=== PATIENT | female | born 1960 | race Caucasian/White ===

== ENCOUNTER 2018-05-20 08:45 | Inpatient (IN) | payer BC ==
[~2018-05-20] VITALS: Ht 175.3 cm; Wt 151.8 kg
[2018-05-20] VITALS (23 sets, daily range): BP systolic 116–193; BP diastolic 67–106
[2018-05-20] MEDS ORDERED: sod bicarbonate 150mEq in D5W 1,150 ML IV ONE (09:15)
[2018-05-20] MEDS ORDERED: diphenhydrAMINE 25mg capsule PO PRN (09:15)
[2018-05-20] MEDS ORDERED: normal saline 1000ml 1,000 ML IV SCH (09:30)
[2018-05-20 09:37] LABS: BASOPHILS # (AUTO) 0.1 X10'3 (0-0.2); BASOPHILS % (AUTO) 1.1 % (0-1); EOSINOPHILS # (AUTO) 0.2 X10'3 (0-0.9); EOSINOPHILS % (AUTO) 2.6 % (0-6); HEMATOCRIT 45.2 % (35.0-45.0); HEMOGLOBIN 14.7 g/dl (12.0-16.0); LYMPHOCYTES # (AUTO) 2.1 X10'3 (1.1-4.8); LYMPHOCYTES % (AUTO) 24.7 % (21-51); MEAN CORPUSCULAR HEMOGLOBIN 26.7 PG (27.0-31.0); MEAN CORPUSCULAR HGB CONC 32.6 % (33.0-36.5); MEAN PLATELET VOLUME 7.8 FL (7.4-10.4); MONOCYTES # (AUTO) 0.5 X10'3 (0-0.9); MONOCYTES % (AUTO) 5.3 % (2-12); NEUTROPHILS # (AUTO) 5.8 X10'3 (1.8-7.7); NEUTROPHILS % (AUTO) 66.3 % (42-75); PLATELET COUNT 415 X10'3 (140-440); RED BLOOD COUNT 5.52 X10'6 (4.20-5.60); RED CELL DISTRIBUTION WIDTH 14.8 % (11.5-14.5); WHITE BLOOD COUNT 8.7 X10'3 (4.5-11.0)
[2018-05-20 09:45] LABS: ALBUMIN 3.5 G/DL (3.4-5.0); ANION GAP 11 (8-16); BLOOD UREA NITROGEN 18 MG/DL (7-18); CALCIUM 8.4 MG/DL (8.5-10.1); CHLORIDE 104 MMOL/L (99-107); CREATININE 0.75 MG/DL (0.40-0.90); GLUCOSE 108 MG/DL (70-104); POTASSIUM 3.9 MMOL/L (3.5-5.1); SODIUM 141 MMOL/L (135-145); TOTAL CARBON DIOXIDE 25.7 MMOL/L (24-32); eGFR 80 ML/MIN
[2018-05-20] MEDS ORDERED: ALPR-624 PO (09:47)
[2018-05-20] MEDS ORDERED: LOSA50TA3 PO (09:48)
[2018-05-20] MEDS ORDERED: METO-539 PO (09:49)
[2018-05-20 09:56] LABS: PROTHROMBIN TIME 9.9 SECONDS (9.0-12.0)
[2018-05-20] MEDS ORDERED: LIDOcaine 1% (10mg/ml)w/preservative injection 20ml MDV ONE ×2 (10:18→15:08)
[2018-05-20] MEDS ORDERED: iohexol 350MG/ML 100ml bottle IV ONE ×2 (10:18→16:15)
[2018-05-20] MEDS ORDERED: iohexol 350 MG/ML 50ML vial IV ONE (10:18)
[2018-05-20] MEDS ORDERED: nitroGLYCERIN-Tridil 50MG/D5W 250 ML IV ONE ×2 (10:47→15:35)
[2018-05-20] MEDS ORDERED: midazolam 2 mg/2 ml injection ONE ×5 (10:47→14:44)
[2018-05-20] MEDS ORDERED: fentaNYL/PF 50MCG/1 ML 2ML syringe ONE ×4 (10:47→14:44)
[2018-05-20] MEDS ORDERED: heparin 1,000unit/ml 10ml vial 10 ML ONE ×3 (10:47→14:44)
[2018-05-20] MEDS ORDERED: proCHLORperazine 10 MG/2 ml inj ONE (10:47)
[2018-05-20] MEDS ORDERED: verapamil 2.5 mg/ml inj IV ONE (10:47)
[2018-05-20] MEDS ORDERED: iohexol 350 MG/1 ML 200ml bottle ONE ×2 (11:31→14:44)
[2018-05-20] MEDS ORDERED: nitroGLYCERIN 0.4mg SUBLingual tab SL ONE (11:37)
[2018-05-20] MEDS ORDERED: hydrALAZINE 20mg/ml inj. IV ONE (11:43)
[2018-05-20] MEDS ORDERED: ticagrelor 90mg tablet ONE ×2 (12:26→12:29)
[2018-05-20] MEDS ORDERED: ketorolac tromethamine 15mg/ml inj. IM ONE (13:10)
[2018-05-20] MEDS ORDERED: proCHLORperazine 10 MG/2 ml inj IV PRN (13:35)
[2018-05-20] MEDS ORDERED: ondansetron/PF 4mg/2ml inj IV PRN (13:35)
[2018-05-20] MEDS: HYDROcodone/acetaminophen 10/325mg tab PO PRN ×3 (13:40→23:56)
[2018-05-20] MEDS: OXAZEpam 15mg capsule PO PRN (13:42)
--- NOTE | 2018-05-20 14:30 | NUR ---
Pt arrived from [facility] approx 1300. Had recieved x6 stents. stated severe chest pain of approx 15 on scale of 0-10. Pain meds given. pain persisted. EKG completed approx [address] Starkey arrived in unit to view and talk to pt. pt returned to [facility] at approx 1455
[2018-05-20] MEDS ORDERED: HYDROmorphone 1 mg/ml syringe ONE (15:04)
[2018-05-20] MEDS ORDERED: tirofiban 5mg in NS 100mL 100 ML IV ONE (15:39)
--- NOTE | 2018-05-20 17:00 | NUR ---
Pt arrived from [facility]. Femstop in place. Small hematoma present. Pt denies chest pain. Reports that her bladder is full.
--- NOTE | 2018-05-20 17:15 | NUR ---
16 Fr Temp jacobson placed, 600 mL of clear, clear yellow urine out.
[2018-05-20] MEDS ORDERED: aspirin 81mg tab.chew PO ONE (17:40)
[2018-05-20] MEDS ORDERED: cloNIDine 0.1 mg tablet PO ONE (17:45)
--- NOTE | 2018-05-20 17:49 | NUR ---
Dr Starkey in to see pt. Medication ordered to address hypertension.
[2018-05-20] MEDS: normal saline 1000ml 1,000 ML IV SCH (18:01)
--- NOTE | 2018-05-20 18:31 | NUR ---
Patient in room CICU 2009. I have received report from JESUS ALBERTO ALEXANDER and had the opportunity to ask questions and assume patient care.
--- NOTE | 2018-05-20 19:51 | NUR ---
DR JORGE CALLED ABOUT PATIENT'S EPISODES OF V-TACH. PATIENT HAD 3 BEAT RUN THEN A 6 BEAT RUN OF VTACH AT 1917 PATIENT NOT C/O ANY CP V/S 153/[address] JORGE IS NOT CONCERNED ABOUT THE BP IN THE 150/70'S. ORDERED TO CONTINUE WITH LOPRESSOR SCHEDULED FOR 1999 Addendum: 05/20/18 at 2009 by Chucky Fernández RN DR JORGE CALLED BACK GIVING ORDERS TO GIVE 5MG LOPRESSOR X2 5 MINUTES APART IV AND ALSO ORDERED NURSE TO GIVE MAGNESIUM 2MG ONCE AND RUN OVER 1 HOUR.
[2018-05-20] MEDS ORDERED: metoprolol tartrate 1mg/ml inj IV ONE ×2 (20:00→20:15)
[2018-05-20] MEDS ORDERED: magnesium 2GM in 50ml NS 50 ML IV ONE (20:00)
[2018-05-20] MEDS: magnesium hydroxide 30ml (MOM) UD suspension PO SCH (20:27)
[2018-05-20] MEDS: acetaminophen 325mg tablet PO PRN (20:28)
[2018-05-20] MEDS: docusate sod 100mg capsule PO SCH (20:29)
[2018-05-20] MEDS: metoprolol tartrate 25mg tablet PO SCH (20:31)
--- NOTE | 2018-05-20 23:52 | NUR ---
PATIENT FLAT UNTIL 11PM ; NO SXS OF HEMATOMA OR BLEEDING. PEDAL PULSES STRONG BILATERALLY. WILL CONTINUE TO MONITOR
[2018-05-21] VITALS (25 sets, daily range): BP systolic 131–166; BP diastolic 58–84
--- NOTE | 2018-05-21 03:23 | NUR ---
patient remains on bedrest; drainage noted outside of lines drawn earlier on bandage. pedal pulses remain strong and present bilaterally. site is soft and no sxs of hematoma. will continue to monitor
[2018-05-21] MEDS: acetaminophen 325mg tablet PO PRN ×2 (03:37→17:40)
[2018-05-21] MEDS: HYDROcodone/acetaminophen 5mg/325mg tablet PO PRN ×3 (04:45→20:06)
[2018-05-21 05:37] LABS: BASOPHILS % (AUTO) 0.2 % (0-1); EOSINOPHILS # (AUTO) 0.2 X10'3 (0-0.9); EOSINOPHILS % (AUTO) 1.4 % (0-6); HEMATOCRIT 39.8 % (35.0-45.0); HEMOGLOBIN 12.9 g/dl (12.0-16.0); LYMPHOCYTES # (AUTO) 2.2 X10'3 (1.1-4.8); LYMPHOCYTES % (AUTO) 17.8 % (21-51); MEAN CORPUSCULAR HEMOGLOBIN 26.6 PG (27.0-31.0); MEAN CORPUSCULAR HGB CONC 32.6 % (33.0-36.5); MEAN CORPUSCULAR VOLUME 81.7 FL (78-98); MEAN PLATELET VOLUME 7.9 FL (7.4-10.4); MONOCYTES # (AUTO) 1.1 X10'3 (0-0.9); MONOCYTES % (AUTO) 8.9 % (2-12); NEUTROPHILS # (AUTO) 8.8 X10'3 (1.8-7.7); NEUTROPHILS % (AUTO) 71.7 % (42-75); PLATELET COUNT 388 X10'3 (140-440); RED BLOOD COUNT 4.87 X10'6 (4.20-5.60); RED CELL DISTRIBUTION WIDTH 15.1 % (11.5-14.5); WHITE BLOOD COUNT 12.3 X10'3 (4.5-11.0)
[2018-05-21 05:43] LABS: ALBUMIN 2.7 G/DL (3.4-5.0); ANION GAP 8 (8-16); BLOOD UREA NITROGEN 10 MG/DL (7-18); BUN/CREATININE RATIO 16.1 (6.6-38.0); CHLORIDE 103 MMOL/L (99-107); CHOL/HDL RATIO 3.7 (0.00-4.99); CHOLESTEROL 141 MG/DL (0-200); CREATININE 0.62 MG/DL (0.40-0.90); GLUCOSE 111 MG/DL (70-104); HDL CHOLESTEROL 38 MG/DL (35-60); LDL CHOLESTEROL 96 MG/DL (50-100); MAGNESIUM 2.2 MG/DL (1.5-2.4); POTASSIUM 3.2 MMOL/L (3.5-5.1); SODIUM 140 MMOL/L (135-145); TOTAL CARBON DIOXIDE 28.6 MMOL/L (24-32); TRIGLYCERIDES 74 MG/DL (20-135); eGFR > 90 ML/MIN
--- NOTE | 2018-05-21 06:05 | NUR ---
DEANNA documentation: I have reviewed and agree with all interventions, assessments performed and documented by ESVIN ALEXANDER.
--- NOTE | 2018-05-21 06:05 | NUR ---
[facility] Medication Administration: For this medication-pass time frame, all medication were reviewed, dispensed, administered and documented per hospital policy by ESVIN ALEXANDER.
--- NOTE | 2018-05-21 06:27 | NUR ---
Problems reprioritized. Patient report given, questions answered & plan of care reviewed with JESUS ALBERTO ALEXANDER. Addendum: 05/21/18 at 0628 by Chucky Fernández RN PATIENT ASLEEP IN BED; IN NO DISTRESS, IV FLUIDS RUNNING ORDERED.
--- NOTE | 2018-05-21 06:30 | NUR ---
Patient in room CICU 2009. I have received report and had the opportunity to ask questions and assume patient care.
[2018-05-21] MEDS: normal saline 1000ml 1,000 ML IV SCH ×2 (07:00→20:20)
[2018-05-21] MEDS ORDERED: potassium Cl 20 mEq SR tablet PO STA (07:53)
[2018-05-21] MEDS ORDERED: potassium Cl 20 mEq/100mL bag IV ONE (07:55)
[2018-05-21] MEDS: docusate sod 100mg capsule PO SCH ×2 (08:34→20:00)
[2018-05-21] MEDS: atorvastatin 20mg tablet PO SCH (08:35)
[2018-05-21] MEDS: aspirin 81mg tab.chew PO SCH (08:35)
[2018-05-21] MEDS: metoprolol tartrate 25mg tablet PO SCH ×2 (08:35→20:02)
[2018-05-21] MEDS: ticagrelor 90mg tablet PO SCH ×2 (08:37→20:01)
[2018-05-21] MEDS ORDERED: Potassium Cl inj 20 MEQ in normal saline 250ml IV soln 240 ML IV ONE (08:40)
[2018-05-21] MEDS ORDERED: NORepinephrine 8mg/ 250ml NS 250 ML IV ONE (09:08)
--- NOTE | 2018-05-21 13:30 | NUR ---
Hampton catheter discontinued. Pt OOB to commode with minimal assist.
--- NOTE | 2018-05-21 15:00 | NUR ---
Pt walked 50 feet. Tolerated well. Denied chest pain, dyspnea, dizziness. BP remained stable, pt remained in sinus rhythm.
--- NOTE | 2018-05-21 15:30 | NUR ---
Message left with Dr. Starkey's office requesting discharge orders.
--- NOTE | 2018-05-21 17:22 | NUR ---
Called Dr. Starkey's answering service and had page placed.
--- NOTE | 2018-05-21 18:20 | NUR ---
Received report from Ra ALEXANDER, patient sitting up in bed finishing dinner at this time. No complaint of pain. Patient is stable, saline locked continuing to monitor.
--- NOTE | 2018-05-21 18:27 | NUR ---
Problems reprioritized. Patient report given, questions answered & plan of care reviewed.
[2018-05-21] MEDS: magnesium hydroxide 30ml (MOM) UD suspension PO SCH (20:25)
[2018-05-22] VITALS (19 sets, daily range): BP systolic 115–172; BP diastolic 8–89
[2018-05-22] MEDS: acetaminophen 325mg tablet PO PRN ×2 (02:09→14:01)
[2018-05-22] MEDS: OXAZEpam 15mg capsule PO PRN (02:19)
[2018-05-22 04:51] LABS: ALBUMIN 2.8 G/DL (3.4-5.0); ANION GAP 10 (8-16); BLOOD UREA NITROGEN 10 MG/DL (7-18); BUN/CREATININE RATIO 14.3 (6.6-38.0); CALCIUM 8.2 MG/DL (8.5-10.1); CHLORIDE 105 MMOL/L (99-107); GLUCOSE 112 MG/DL (70-104); POTASSIUM 3.5 MMOL/L (3.5-5.1); SODIUM 140 MMOL/L (135-145); TOTAL CARBON DIOXIDE 25.3 MMOL/L (24-32); eGFR 86 ML/MIN
[2018-05-22 05:14] LABS: BASOPHILS % (AUTO) 0.2 % (0-1); EOSINOPHILS # (AUTO) 0.2 X10'3 (0-0.9); EOSINOPHILS % (AUTO) 1.6 % (0-6); HEMATOCRIT 40.6 % (35.0-45.0); HEMOGLOBIN 13.2 g/dl (12.0-16.0); LYMPHOCYTES # (AUTO) 2.5 X10'3 (1.1-4.8); LYMPHOCYTES % (AUTO) 23.9 % (21-51); MEAN CORPUSCULAR HEMOGLOBIN 26.9 PG (27.0-31.0); MEAN CORPUSCULAR HGB CONC 32.5 % (33.0-36.5); MEAN CORPUSCULAR VOLUME 82.7 FL (78-98); MEAN PLATELET VOLUME 8.2 FL (7.4-10.4); MONOCYTES # (AUTO) 0.8 X10'3 (0-0.9); MONOCYTES % (AUTO) 7.3 % (2-12); NEUTROPHILS # (AUTO) 6.8 X10'3 (1.8-7.7); PLATELET COUNT 358 X10'3 (140-440); RED BLOOD COUNT 4.91 X10'6 (4.20-5.60); RED CELL DISTRIBUTION WIDTH 14.5 % (11.5-14.5); WHITE BLOOD COUNT 10.3 X10'3 (4.5-11.0)
--- NOTE | 2018-05-22 06:29 | NUR ---
Problems reprioritized. Patient report given, questions answered & plan of care reviewed with Dae ALEXANDER.
--- NOTE | 2018-05-22 06:35 | NUR ---
Patient in room ICU 2045. I have received report and had the opportunity to ask questions and assume patient care.
[2018-05-22] MEDS: docusate sod 100mg capsule PO SCH (07:31)
[2018-05-22] MEDS: atorvastatin 20mg tablet PO SCH (07:36)
[2018-05-22] MEDS: ticagrelor 90mg tablet PO SCH (07:36)
[2018-05-22] MEDS: metoprolol tartrate 25mg tablet PO SCH (07:36)
[2018-05-22] MEDS: HYDROcodone/acetaminophen 5mg/325mg tablet PO PRN (07:36)
[2018-05-22] MEDS: aspirin 81mg tab.chew PO SCH (07:37)
[2018-05-22] MEDS: normal saline 1000ml 1,000 ML IV SCH (07:38)
[2018-05-22] MEDS ORDERED: ATOR40TA PO (17:14)
[2018-05-22] MEDS ORDERED: ASPI-1265 PO (17:17)
[2018-05-22] MEDS ORDERED: TICA90TA PO (17:17)
--- NOTE | 2018-05-22 17:47 | NUR ---
pt dc'd in stable condition with belongings and discharge information. Pt verbalizes understanding of meds, follow up appt with doctor and cardiac rehab. Addendum: 05/22/18 at 1754 by Dae Johnson RN PIV dc'd, family at bedside
== END 2018-05-22 17:40 | disposition home or self-care (01) | DRG 246 ==
LOC: SSTAY O 08:45 → CICU 2S 14:30 → ICU 2S 05-22 06:26
PROVIDERS: ADMIT Internal Medicine Cardiovascular Disease; ATTEND Internal Medicine Cardiovascular Disease
PROC: 4A023N7 Measurement of Cardiac Sampling and Pressure, Left Heart, Percutaneous Approach (ICD-10-PCS; principal; 2018-05-20)
PROC: 027136Z Dilation of Coronary Artery, Two Arteries with Three Drug-eluting Intraluminal Devices, Percutaneous Approach (ICD-10-PCS; 2018-05-20)
PROC: 027237Z Dilation of Coronary Artery, Three Arteries with Four or More Drug-eluting Intraluminal Devices, Percutaneous Approach (ICD-10-PCS; 2018-05-20)
PROC: B2111ZZ Fluoroscopy of Multiple Coronary Arteries using Low Osmolar Contrast (ICD-10-PCS; 2018-05-20)
PROC: B2151ZZ Fluoroscopy of Left Heart using Low Osmolar Contrast (ICD-10-PCS; 2018-05-20)
DX: I25.119 Atherosclerotic heart disease of native coronary artery with unspecified angina pectoris (principal); I25.42 Coronary artery dissection; Z68.42 Body mass index [BMI] 45.0-49.9, adult; K21.9 Gastro-esophageal reflux disease without esophagitis; R94.30 Abnormal result of cardiovascular function study, unspecified; R07.2 Precordial pain; I10 Essential (primary) hypertension; E66.01 Morbid (severe) obesity due to excess calories; Z90.49 Acquired absence of other specified parts of digestive tract; Z79.899 Other long term (current) drug therapy; Z88.5 Allergy status to narcotic agent
CPT/HCPCS: 93458; C9600; C9601; 36415; 80048; 80061; 82948; 83735; 85025; 85610; 87070; 93005; 99152; 99153; A4620; A6257; C1725; C1760; C1769; C1874; C1894; G0378; J0360; J0780; J1170; J1644; J1885; J2001; J2250; J3010; J3246; J3475; J3480; J3490; J7030; Q0163; Q9967

== ENCOUNTER 2018-05-30 21:32 | Emergency (ER) | payer BC ==
[~2018-05-30] VITALS: Ht 175.3 cm; Wt 153.2 kg
[~2018-05-30 21:32] MED LIST: ALPR-624 PO; ASPI-1265 PO; ATOR40TA PO; LOSA50TA3 PO; METO-539 PO; TICA90TA PO
--- NOTE | 2018-05-30 22:23 | NUR ---
family at bedside. awaiting md. pt resting comfortable. vitals stable. bp decreased
--- NOTE | 2018-05-30 23:40 | NUR ---
pt denies current pain. resting comfortably on gurney. 2 visitors at bedside
[2018-05-31] MEDS ORDERED: SULF1TAB49 PO
[2018-05-31 00:51] VITALS: BP 168/82
== END 2018-05-31 00:53 | disposition home or self-care (01) ==
LOC: ER 21:32
DX: S70.11XA Contusion of right thigh, initial encounter (principal); S31.813A Puncture wound without foreign body of right buttock, initial encounter; Z88.6 Allergy status to analgesic agent; Z79.82 Long term (current) use of aspirin; X58.XXXA Exposure to other specified factors, initial encounter; Y93.89 Activity, other specified; Y92.89 Other specified places as the place of occurrence of the external cause; Y99.8 Other external cause status
CPT/HCPCS: 99284

== ENCOUNTER 2023-06-28 11:20 | Day surgery (SDC) | payer BC ==
[2023-06-21 17:05] LABS: BASOPHILS # (AUTO) 0.1 X10'3 (0-0.2); BASOPHILS % (AUTO) 0.5 % (0-1); EOSINOPHILS # (AUTO) 0.2 X10'3 (0-0.9); EOSINOPHILS % (AUTO) 1.6 % (0-6); LYMPHOCYTES # (AUTO) 3.5 X10'3 (1.1-4.8); LYMPHOCYTES % (AUTO) 25.2 % (21-51); MEAN CORPUSCULAR HEMOGLOBIN 28.1 PG (27.0-31.0); MEAN CORPUSCULAR VOLUME 85.1 FL (78-98); NEUTROPHILS # (AUTO) 9.2 X10'3 (1.8-7.7); NEUTROPHILS % (AUTO) 65.7 % (42-75); PRE OP HEMATOCRIT 45.1 % (35.0-45.0); PRE OP HEMOGLOBIN 14.9 g/dL (12.0-16.0); PRE OP PLATELET COUNT 440 X10'3 (140-440); RED BLOOD COUNT 5.29 X10'6 (4.20-5.60); RED CELL DISTRIBUTION WIDTH 15.1 % (11.5-14.5)
[2023-06-21 17:10] LABS: BILIRUBIN,URINE NEGATIVE (Neg); CLARITY,URINE CLOUDY (Clear); COLOR,URINE YELLOW (Yellow); GLUCOSE, URINE NEGATIVE (Neg); KETONES,URINE NEGATIVE (Neg); LEUKOCYTE ESTERASE ,URINE SMALL (Neg); NITRITES, URINE NEGATIVE (Neg); OCCULT BLOOD,URINE SMALL (Neg); PH,URINE 5.5 (4.8-8.0); PROTEIN,URINE NEGATIVE (Neg); UROBILINOGEN,URINE 0.2 E.U/dL (0.2-1.0)
[2023-06-21 17:32] LABS: ALBUMIN 3.5 G/DL (3.4-5.0); ALBUMIN/GLOBULIN RATIO 0.9 (1.1-1.5); ALKALINE PHOSPHATASE 107 IU/L (46-116); BLOOD UREA NITROGEN 20 MG/DL (7-18); CALCIUM 8.8 MG/DL (8.5-10.1); CHLORIDE 107 MMOL/L (99-107); PRE OP ALT 33 U/L (30-65); PRE OP ANION GAP 15 (8-16); PRE OP AST 15 U/L (10-37); PRE OP BILIRUB, TOTAL 0.2 MG/DL (0.0-1.0); PRE OP GLUCOSE 110 MG/DL (70-104); PRE OP SODIUM 147 MMOL/L (135-145); THYROID STIMULATING HORMONE 4.51 ulU/ml (0.34-4.50); TOTAL CARBON DIOXIDE 25.3 MMOL/L (24-32); TOTAL PROTEIN 7.6 G/DL (6.4-8.2); eGFR 56 ML/MIN
[2023-06-21 17:35] LABS: UA COLLECTION TYPE NON-SPECIFIED
[2023-06-21 17:38] LABS: PRE OP POTASSIUM 3.3 MMOL/L (3.4-5.1)
[2023-06-21 17:49] LABS: SQUAMOUS EPITHELIAL CELL,UR MANY /LPF (FEW)
[2023-06-21 17:51] LABS: BACTERIA,URINE 2+ /HPF (Neg); RBC,URINE 0-2 /HPF (0-2)
[2023-06-28] VITALS (7 sets, daily range): BP systolic 119–167; BP diastolic 64–87; PULSE 62–76; RESP 11–19; TEMP 97.3; O2SAT 94–97
[~2023-06-28] VITALS: Ht 172.7 cm; Wt 153.9 kg
[2023-06-28] MEDS: ceFOXitin 2GM-NS 100mL ADDvant 100 ML IV ONE (05:30)
[~2023-06-28 11:20] MED LIST changes: -ALPR-624 PO; -ASPI-1265 PO; +ASPI81TA52 PO; +ATEN50TA8 PO; -ATOR40TA PO; +BRIN15DR4 EACHEYE; +CETI10CA PO; +CLOP75TA34 PO; +DOCUMENT DATE & TIME OF BETA-BLOCKER PO ONE; +HYDR12.55 PO; +LEVO150T PO; -LOSA50TA3 PO; -METO-539 PO; +MVI; +NETA2.5D3 EACHEYE; +ROSU20TA73 PO; -TICA90TA PO; +VALS80TA32 PO
[2023-06-28] MEDS: famotidine 20mg tablet PO ONE (12:21)
[2023-06-28] MEDS: ringers solution, lacted 1,000 ML IV SCH (12:21)
[2023-06-28] MEDS ORDERED: meperidine/PF 25mg/ml syringe IV PRN ×2 (14:10)
[2023-06-28] MEDS ORDERED: ondansetron/PF 4mg/2ml inj IV PRN (14:10)
[2023-06-28] MEDS ORDERED: HYDROmorphone/PF 0.2 MG/ML SYRINGE IV PRN (14:10)
[2023-06-28] MEDS ORDERED: ringers solution, lacted 1,000 ML IV SCH (14:10)
[2023-06-28] MEDS ORDERED: sevoflurane 250ml liquid IH ONE (14:19)
[2023-06-28] MEDS ORDERED: propofol inj 20 ML IV ONE (14:20)
[2023-06-28] MEDS ORDERED: fentaNYL/PF 50MCG/1 ML 2ML syringe ONE (14:20)
[2023-06-28] MEDS: meperidine/PF 25mg/ml syringe IV PRN (15:09)
[2023-06-28] MEDS: HYDROmorphone/PF 0.2 MG/ML SYRINGE IV PRN (15:43)
== END 2023-06-28 15:51 | disposition home or self-care (01) ==
LOC: PAS 11:20
PROVIDERS: ATTEND Obstetrics & Gynecology Obstetrics
DX: N95.0 Postmenopausal bleeding (principal); N85.02 Endometrial intraepithelial neoplasia [EIN]; I10 Essential (primary) hypertension; I25.10 Atherosclerotic heart disease of native coronary artery without angina pectoris; E66.01 Morbid (severe) obesity due to excess calories; E03.9 Hypothyroidism, unspecified; E78.5 Hyperlipidemia, unspecified; F43.10 Post-traumatic stress disorder, unspecified; H40.9 Unspecified glaucoma; I25.2 Old myocardial infarction; M19.90 Unspecified osteoarthritis, unspecified site; Z79.82 Long term (current) use of aspirin; Z79.890 Hormone replacement therapy; Z79.899 Other long term (current) drug therapy; Z90.49 Acquired absence of other specified parts of digestive tract; Z90.721 Acquired absence of ovaries, unilateral; Z95.5 Presence of coronary angioplasty implant and graft; Z98.890 Other specified postprocedural states; Z68.43 Body mass index [BMI] 50.0-59.9, adult; Z88.5 Allergy status to narcotic agent; Z88.8 Allergy status to other drugs, medicaments and biological substances
CPT/HCPCS: 36415; 58558; 71046; 80053; 81001; 82948; 84443; 85025; 86885; 86900; 86901; 87081; J0694; J1170; J2175; J2704; J3010; J7030; J7120; Z7506; Z7512; A4355; A4618; A6258; A7000

== ENCOUNTER 2023-07-07 16:38 | Emergency (ER) | payer BC ==
[~2023-07-07] VITALS: Ht 172.7 cm; Wt 152.9 kg
[~2023-07-07 16:38] MED LIST changes: -DOCUMENT DATE & TIME OF BETA-BLOCKER PO ONE
[2023-07-07 16:43] VITALS: BP 184/88; PULSE 89; TEMP 98; O2SAT 98
[2023-07-07 17:24] LABS: BASOPHILS % (AUTO) 0.4 % (0-1); EOSINOPHILS # (AUTO) 0.1 X10'3 (0-0.9); EOSINOPHILS % (AUTO) 1.5 % (0-6); HEMATOCRIT 42.2 % (35.0-45.0); HEMOGLOBIN 13.9 g/dl (12.0-16.0); LYMPHOCYTES # (AUTO) 1.6 X10'3 (1.1-4.8); LYMPHOCYTES % (AUTO) 18.2 % (21-51); MEAN CORPUSCULAR HEMOGLOBIN 27.9 PG (27.0-31.0); MEAN CORPUSCULAR VOLUME 84.5 FL (78-98); MONOCYTES # (AUTO) 0.5 X10'3 (0-0.9); MONOCYTES % (AUTO) 5.8 % (2-12); NEUTROPHILS # (AUTO) 6.6 X10'3 (1.8-7.7); NEUTROPHILS % (AUTO) 74.1 % (42-75); PLATELET COUNT 356 X10'3 (140-440); RED CELL DISTRIBUTION WIDTH 14.8 % (11.5-14.5); WHITE BLOOD COUNT 8.9 X10'3 (4.5-11.0)
[2023-07-07 17:33] LABS: APTT 29 SECONDS (22-32); INR 0.9 INR; PROTHROMBIN TIME 10.1 SECONDS (9.0-12.0)
[2023-07-07 17:37] LABS: ALANINE AMINOTRANSFERASE 30 U/L (12-78); ALBUMIN 3.1 G/DL (3.4-5.0); ALBUMIN/GLOBULIN RATIO 0.9 (1.1-1.5); ALKALINE PHOSPHATASE 102 IU/L (46-116); ANION GAP 10 (8-16); ASPARTATE AMINO TRANSFERASE 14 U/L (10-37); BILIRUBIN,TOTAL 0.3 MG/DL (0.1-1.0); BLOOD UREA NITROGEN 16 MG/DL (7-18); BUN/CREATININE RATIO 16.3 (10.0-20.0); CALCIUM 7.7 MG/DL (8.5-10.1); CHLORIDE 105 MMOL/L (99-107); CREATININE 0.98 MG/DL (0.40-0.90); GLUCOSE 145 MG/DL (70-104); POTASSIUM 3.8 MMOL/L (3.5-5.1); SODIUM 143 MMOL/L (135-145); TOTAL CARBON DIOXIDE 28.3 MMOL/L (24-32); TOTAL PROTEIN 6.7 G/DL (6.4-8.2); eCRCL 60 ML/MIN; eGFR 58 ML/MIN
[2023-07-07 18:02] VITALS: RESP 16
== END 2023-07-07 18:38 | disposition home or self-care (01) ==
LOC: ER 16:38
DX: N93.9 Abnormal uterine and vaginal bleeding, unspecified (principal); Z88.5 Allergy status to narcotic agent; Z91.09 Other allergy status, other than to drugs and biological substances; Z79.82 Long term (current) use of aspirin; Z79.899 Other long term (current) drug therapy; Z79.2 Long term (current) use of antibiotics
CPT/HCPCS: 36415; 80053; 85025; 85610; 85730; 99283